=== PATIENT | female | born 1985 | race Caucasian/White ===

== ENCOUNTER 2024-01-27 15:18 | Emergency (ER) | payer MEDICARE, OTHER, SELFPAY ==
[2024-01-27 15:19] VITALS: BP 159/79
[2024-01-27 15:49] LABS: % Basophils 0.6 % (0-2); % Immature Granulocytes 0.4 % (0-0.5); % Lymphocytes 20.7 % (20.5-51.1); % Monocytes 7.8 % (1.7-9.3); % Neutrophils 69.5 % (42.2-75.2); Absolute Basophils 0.1 10^3/uL (0-0.2); Absolute Eosinophils 0.1 10^3/uL (0-0.7); Absolute Lymphocytes 2.2 10^3/uL (1.2-3.4); Absolute Monocytes 0.8 10^3/uL (0.1-0.6); Absolute Neutrophils 7.4 10^3/uL (1.4-6.5); Hematocrit 40.2 % (37.0-47.0); Hemoglobin 13.8 g/dL (12.0-16.0); Mean Corp Hgb Conc. 34.3 g/dL (33.0-37.0); Mean Corpuscular Hgb 30.1 pg (27.0-31.0); Mean Corpuscular Volume 87.6 fL (81.0-99.0); Mean Platelet Volume 14.1 fL (7.4-10.4); Nucleated Red Blood Cells % 0 %; Platelet Count 155 10^3/uL (130-400); Red Blood Cell Count 4.59 10^6/uL (4.20-5.40); Red Cell Dist. Width 13.2 % (11.5-14.5); White Blood Cell Count 10.6 10^3/uL (4.8-10.8)
[2024-01-27 15:59] LABS: ALT (SGPT) 12 U/L (0-35); AST (SGOT) 24 U/L (14-36); Albumin 4.6 g/dl (3.5-5.0); Alkaline Phosphatase 80 U/L (38-126); Blood Urea Nitrogen 13 mg/dl (7-17); Calcium 9.8 mg/dl (8.4-10.2); Carbon Dioxide 22 mmol/L (22-30); Chloride 107 mmol/L (98-107); Glucose 98 mg/dl (70-99); Lipase 261 U/L (23-300); Potassium 3.9 mmol/L (3.5-5.1); Sodium 140 mmol/L (135-145); Total Bilirubin 0.9 mg/dl (0.2-1.3); Total Protein 7.7 g/dl (6.3-8.2); eGFR > 60.00
[2024-01-27] MEDS: OMNIPAQUE 50 ML PO (18:05)
[2024-01-27 18:11] VITALS: BMI 27.7
[2024-01-27 18:17] VITALS: BP 115/74
--- NOTE | 2024-01-27 18:52 | ED.GENMED ---
History of Present Illness
<Fernie Echavarria MD - Last Filed: 01/27/24 20:15>
General
Chief Complaint: Abdominal Pain
Source: patient
Exam Limitations: none
Time Seen by Provider: 01/27/24 16:56
Nursing documentation reviewed up to this point in time: agreed with
History of Present Illness
History of Present Illness:
Patient presents to ED secondary to intermittent right flank pain over the past 3 days. Denies fever or chills. Denies trauma. Denies difficulty with urination. Denies recent illness. Denies recent change in medications or diet. Of note,
patient has had loose bowels over the past 2 days. Patient is primarily concerned with the fact that she has had multiple hernia repair in the past. Denies swelling. Denies recent change in bowel habits.
Past History
<Fernie Echavarria MD - Last Filed: 01/27/24 20:15>
Past History
ED Past Medical History: Other
ED Past Surgical History: Orthopedic
Social History
Tobacco: Non-smoker
Alcohol: None
Drug: Marijuana
Personal: Single
Living: with family
Employment: Employed
Family History
Family History: Other
Review of Systems
<Fernie Echavarria MD - Last Filed: 01/27/24 20:15>
Review of Systems
Allergies reviewed?: Yes
All Other Systems: ROS reviewed and negative except as documented in HPI and ROS
Constitutional: Reports no symptoms
Respiratory: Reports no symptoms; Denies cough
Cardiac: Reports no symptoms; Denies chest pain
ABD/GI: Reports abdominal pain and diarrhea; Denies nausea or vomiting
: Reports no symptoms
Musculoskeletal: Reports no symptoms
Skin: Reports no symptoms
Neurological: Reports no symptoms
Phy Exam
<Fernie Echavarria MD - Last Filed: 01/27/24 20:15>
Physical Exam
Physical Exam:
Physical Exam
General: no apparent distress, not acutely ill. afebrile
Head: nc/at. eomi
Neck: supple
Abdomen: normal bowel sounds. no distention. mild lower abdominal tenderness to palpation, R>L
Neuro: alert and oriented. no focal neurological deficits
Skin: no rash
Psychiatric: well kept. interactive and cooperative
Extremities: no edema. no calf tenderness
Course
<Fernie Echavarria MD - Last Filed: 01/27/24 20:15>
Orders/Labs/Results
Orders:
Orders
01/27/24 15:30
Complete Blood Count/With Diff Urgent
Comprehensive Metabolic Panel Urgent
HCG, Serum Qualitative Screen Urgent
Comment: ADD ON
Lipase Urgent
01/27/24 17:06
CT Abd/pel (oral only)-[facility] Only Urgent
Comment: one functioning kidney
Reason For Exam: lower abd pain w hx mult surgeries
Iohexol [Omnipaque] See Protocol PO NOW STA
01/27/24 18:16
Add On- LAB Urgent
Tests Added?: HCG qual, serum
01/27/24 18:26
Acetaminophen [Tylenol] 650 mg PO NOW STA
Mag Hydrox/Al Hydrox/Simeth [Maalox] 30 ml Phenobarb/Hyoscy/Atropine/Scop [] 10 ml PO NOW
01/27/24 18:43
Mag Hydrox/Al Hydrox/Simeth [Maalox] 30 ml .ROUTE .STK-MED ONE
Phenobarb/Hyoscy/Atropine/Scop [] 10 ml .ROUTE .STK-MED ONE
01/27/24 20:44
Ondansetron Injectable [Zofran] 4 mg IV NOW STA
01/27/24 20:53
Ondansetron Orally Disint [Zofran Odt (Orally Disintegrating)] 4 mg .ROUTE .STK-MED ONE
Ondansetron Orally Disint [Zofran Odt (Orally Disintegrating)] 4 mg PO NOW STA
Abnormal Lab Results
01/27/24
15:30
MPV 14.1 H fL
(7.4-10.4)
Absolute Neuts (auto) 7.4 H 10^3/uL
(1.4-6.5)
Absolute Monos (auto) 0.8 H 10^3/uL
(0.1-0.6)
01/27/24 15:30
01/27/24 15:30
Vital Signs
Initial and Last Documented VS:
Initial Vital Signs
Temp Pulse Resp BP Pulse Ox
98.2 F 72 18 159/79 100
01/27/24 15:19 01/27/24 15:19 01/27/24 15:19 01/27/24 15:19 01/27/24 15:19
Last Documented Vital Signs
Temp Pulse Resp BP Pulse Ox
98.2 F 75 18 115/74 98
01/27/24 15:19 01/27/24 18:17 01/27/24 18:17 01/27/24 18:17 01/27/24 18:17
<Navi Cohen, DO - Last Filed: 01/27/24 21:47>
Orders/Labs/Results
Orders:
Orders
01/27/24 15:30
Complete Blood Count/With Diff Urgent
Comprehensive Metabolic Panel Urgent
HCG, Serum Qualitative Screen Urgent
Comment: ADD ON
Lipase Urgent
01/27/24 17:06
CT Abd/pel (oral only)-[facility] Only Urgent
Comment: one functioning kidney
Reason For Exam: lower abd pain w hx mult surgeries
Iohexol [Omnipaque] See Protocol PO NOW STA
01/27/24 18:16
Add On- LAB Urgent
Tests Added?: HCG qual, serum
01/27/24 18:26
Acetaminophen [Tylenol] 650 mg PO NOW STA
Mag Hydrox/Al Hydrox/Simeth [Maalox] 30 ml Phenobarb/Hyoscy/Atropine/Scop [] 10 ml PO NOW
01/27/24 18:43
Mag Hydrox/Al Hydrox/Simeth [Maalox] 30 ml .ROUTE .STK-MED ONE
Phenobarb/Hyoscy/Atropine/Scop [] 10 ml .ROUTE .STK-MED ONE
01/27/24 20:44
Ondansetron Injectable [Zofran] 4 mg IV NOW STA
01/27/24 20:53
Ondansetron Orally Disint [Zofran Odt (Orally Disintegrating)] 4 mg .ROUTE .STK-MED ONE
Ondansetron Orally Disint [Zofran Odt (Orally Disintegrating)] 4 mg PO NOW STA
Abnormal Lab Results
01/27/24
15:30
MPV 14.1 H fL
(7.4-10.4)
Absolute Neuts (auto) 7.4 H 10^3/uL
(1.4-6.5)
Absolute Monos (auto) 0.8 H 10^3/uL
(0.1-0.6)
01/27/24 15:30
01/27/24 15:30
Vital Signs
Initial and Last Documented VS:
Initial Vital Signs
Temp Pulse Resp BP Pulse Ox
98.2 F 72 18 159/79 100
01/27/24 15:19 01/27/24 15:19 01/27/24 15:19 01/27/24 15:19 01/27/24 15:19
Last Documented Vital Signs
Temp Pulse Resp BP Pulse Ox
98.2 F 75 18 115/74 98
01/27/24 15:19 01/27/24 18:17 01/27/24 18:17 01/27/24 18:17 01/27/24 18:17
<Fernie Echavarria MD - Last Filed: 01/27/24 20:15>
MDM/Problems Addressed
MDM/Problems Addressed:
Patient remains afebrile, hemodynamically stable, nontoxic-appearing. However, secondary to persistent lower abdominal pain, decision made to obtain CT abdomen pelvis with oral contrast only, as patient only has 1 functioning kidney, with
consideration for potential partial bowel obstruction vs appendicitis.
<Navi Cohen DO - Last Filed: 01/27/24 21:47>
*Radiology
Radiology exam reviewed: radiology read reviewed (CT abdomen pelvis no acute finding)
*Pulse Oximetry
Patient hypoxic: no
*EKG
Interpreted by ED Provider?: NA
*Soup Mixer Interpretation
Rate: Soup Mixer- N/A
*Critical Care Note
Total Time (30-74mins, 75-104mins- exclusive of procedures): Not Applicable
<Navi Cohen DO - Last Filed: 01/27/24 21:47>
Update Note
Update Note:
38-year-old female with right flank pain, mildly improved. Suspect likely strain. No acute findings on CT abdomen pelvis. Stable for discharge.
ED Attending Note
<Fernie Echavarria MD - Last Filed: 01/27/24 20:15>
-
Portions of this chart may have been created with voice recognition software.� Occasional wrong word or��sound alike� substitutions may have occurred due to the inherent limitations of voice recognition software.
Discharge Plan
Departure
Patient Disposition: Home (Routine Discharge)
Date of Disposition: 01/27/24
Time of Disposition: 21:44
Patient with high blood pressure during this ER visit?: No
Condition: Good
Discharge Problem:
Acute right flank pain
Instructions: Flank Pain ED
Prescriptions:
No Action
hydrocodone-acetaminophen 1 TABLET tablet
1 tab PO Q4HPRN PRN (Reason: pain) Qty: 12 0RF
tramadol 50 MG tablet
50 mg PO Q6HPRN PRN (Reason: pain) Qty: 12 0RF
meloxicam 15 MG tablet
15 mg PO Daily Qty: 15 0RF
sulfamethoxazole-trimethoprim 1 TABLET tablet
1 tab PO BID Qty: 20 0RF
phenazopyridine 100 MG tablet
100 mg PO TIDPRN PRN (Reason: urinary burining) Qty: 10 0RF
Referrals:
Tevin Barker DO [Family Provider] - Call in 1-3 days for appt
Interventions
Interventions:
*Risk Screen - Suicide Last Done: 01/27/24 15:19
*General Assessment Last Done: 01/27/24 15:19
*Neglect/Abuse Screening Last Done: 01/27/24 15:19
*ED COVID-19 Vaccine History Last Done: 01/27/24 15:19
EC-Skhbxp-Rhuacnvpgx Assessment Last Done: 01/27/24 18:12
Discharge Date and Time
Print Language: TAJIK
[2024-01-27 19:01] LABS: HCG, Serum Qualitative Screen Negative
[2024-01-27] MEDS: MAALOX 40 PO (19:06)
[2024-01-27] MEDS: TYLENOL 650 MG PO (19:06)
[2024-01-27] MEDS: ZOFRAN ODT (ORALLY DISINTEGRATING) 4 MG PO (20:54)
[2024-01-27 22:44] VITALS: BP 112/72
== END 2024-01-27 22:26 | disposition home or self-care (01) ==
LOC: EMR 15:18
PROVIDERS: Emergency Medicine; EMERGENCY PHYSICIAN Emergency Medicine; FAMILY PHYSICIAN Family Medicine
DX: R10.9 Unspecified abdominal pain (principal)
CPT/HCPCS: 99284; 74176; 80053; 83690; 84703; 85025

== ENCOUNTER → 2024-10-02 13:29 | Outpatient (REF) | payer MEDICARE, OTHER, SELFPAY | LOC: PNTC 13:29 | PROVIDERS: ATTENDING PHYSICIAN Student in an Organized Health Care Education/Training Program | DX: Z36.0 Encounter for antenatal screening for chromosomal anomalies (principal); Z36.82 Encounter for antenatal screening for nuchal translucency | CPT/HCPCS: 76801; 76813 ==

== ENCOUNTER → 2024-10-17 16:47 | Outpatient (REF) | payer MEDICARE, OTHER, SELFPAY | LOC: PNTC 16:47 | PROVIDERS: ATTENDING PHYSICIAN Student in an Organized Health Care Education/Training Program | DX: Z96.0 Presence of urogenital implants (principal) | CPT/HCPCS: 76805 ==

== ENCOUNTER → 2024-11-20 15:59 | Outpatient (REF) | payer MEDICARE, OTHER, SELFPAY | LOC: PNTC 15:59 | PROVIDERS: ATTENDING PHYSICIAN Student in an Organized Health Care Education/Training Program | DX: O26.839 Pregnancy related renal disease, unspecified trimester (principal) | CPT/HCPCS: 76811 ==

== ENCOUNTER → 2025-01-15 14:01 | Outpatient (REF) | payer MEDICARE, OTHER, SELFPAY | LOC: PNTC 14:01 | PROVIDERS: ATTENDING PHYSICIAN Obstetrics & Gynecology | DX: O99.320 Drug use complicating pregnancy, unspecified trimester (principal); O09.529 Supervision of elderly multigravida, unspecified trimester; O34.219 Maternal care for unspecified type scar from previous cesarean delivery | CPT/HCPCS: 76816 ==

== ENCOUNTER 2025-02-25 00:35 | Emergency (ER) | payer MEDICARE, OTHER, SELFPAY ==
[2025-02-25 00:39] VITALS: BP 127/86
[2025-02-25 01:02] LABS: Urine Character Slightly Cloudy (Clear)
[2025-02-25 01:10] LABS: Urine White Cell >100 /HPF (0-5)
[2025-02-25 01:42] VITALS: BP 113/64
[2025-02-25 01:43] VITALS: BMI 31.7
--- NOTE | 2025-02-25 02:37 | ED.GENMED ---
History of Present Illness
General
Chief Complaint: Urinary Symptoms
Source: patient
Exam Limitations: none
Time Seen by Provider: 02/25/25 01:48
Nursing documentation reviewed up to this point in time: agreed with
History of Present Illness
History of Present Illness:
Patient G3, P2, currently approximately 8 months , presents to ED secondary to sudden onset of urinary frequency along with burning sensation, starting this evening. Patient has had number of similar symptoms in the past, secondary to UTI.
Denies fever or chills. Denies back pain. Denied nausea vomiting. Denies trauma. Denies inability to urinate.
Past History
Past History
ED Past Medical History: Other
ED Past Surgical History: Orthopedic
Social History
Tobacco: Non-smoker
Alcohol: None
Drug: Marijuana
Personal: Single
Living: with family
Employment: Employed
Family History
Family History: Other
Review of Systems
Review of Systems
Allergies reviewed?: Yes
All Other Systems: ROS reviewed and negative except as documented in HPI and ROS
Constitutional: Reports no symptoms
: Reports dysuria, frequency and urgency
Musculoskeletal: Reports no symptoms
Skin: Reports no symptoms
Neurological: Reports no symptoms
Phy Exam
Physical Exam
Physical Exam:
Physical Exam
General: mild distress, not acutely ill. afebrile
Head: nc/at. eomi
Neck: supple. normal range of motion.
Abdomen: normal bowel sounds. not tender.
Neuro: alert and oriented x 3. no focal neurological deficits
Skin: no rash
Psychiatric: well kept. interactive and cooperative
Extremities: no edema. no calf tenderness.
Course
Orders/Labs/Results
Orders:
Orders
02/25/25 00:56
Urine Culture Reflexed from UA [Urinalysis Reflex To Culture] Urgent
Date Specimen was Collected: 02/25/25
Time Specimen was Collected: 00:51
Urine Microscopic Reflex Cult Urgent
Urine Culture Urgent
LEN Source: U
Specimen Description:
Date Specimen was Collected: 02/25/25
Time Specimen was Collected: 00:51
02/25/25 02:31
Cephalexin Monohydrate [Keflex] 500 mg PO NOW STA
Abnormal Lab Results
02/25/25
00:56
Ur Occult Blood Reflex 4+ A
(Negative)
Urine Nitrite (Reflex) Positive A
(Negative)
Leukocyte Esterase Rfl 3+ A
(Negative)
Urine RBC 7-10 A /HPF
(0-2)
Urine WBC (Reflex) >100 A /HPF
(0-5)
Urine Bacteria (Reflex) Moderate A
(Negative)
Urine Albumin (Reflex) 2+ A
(Neg - Trace)
Vital Signs
Initial and Last Documented VS:
Initial Vital Signs
Temp Pulse Resp BP Pulse Ox
98 F 70 20 127/86 100
02/25/25 00:39 02/25/25 00:39 02/25/25 00:39 02/25/25 00:39 02/25/25 00:39
Last Documented Vital Signs
Temp Pulse Resp BP Pulse Ox
98 F 70 20 113/64 100
02/25/25 00:39 02/25/25 00:39 02/25/25 00:39 02/25/25 01:42 02/25/25 02:39
MDM/Problems Addressed
MDM/Problems Addressed:
History, exam, and urinalysis consistent with urinary tract infection. Patient otherwise is afebrile, hemodynamically stable, and nontoxic-appearing. Patient will be started on Keflex and referred to her MACHINE TECH physician at [facility] for
reevaluation. Patient will be prescribed Pyridium, but prior to taking it, will advise patient to discuss with on-call OB physician regarding usage of Pyridium.
*Pulse Oximetry
SaO2: 100
Oxygen Mode of Delivery: Room air
Patient hypoxic: no
*Critical Care Note
Total Time (30-74mins, 75-104mins- exclusive of procedures): Not Applicable
ED Attending Note
-
Portions of this chart may have been created with voice recognition software.� Occasional wrong word or��sound alike� substitutions may have occurred due to the inherent limitations of voice recognition software.
Discharge Plan
Departure
Patient Disposition: Home (Routine Discharge)
Date of Disposition: 02/25/25
Time of Disposition: 02:40
Patient with high blood pressure during this ER visit?: Yes
Condition: Good
Discharge Problem:
UTI (urinary tract infection)
Instructions: Urinary Tract Infection, Adult (DC)
Prescriptions:
New
cephalexin 500 mg capsule
500 mg PO Q8H Qty: 20 0RF
phenazopyridine [Pyridium] 100 mg tablet
100 mg PO TID PRN (Reason: Pain) Qty: 14 0RF
No Action
hydrocodone-acetaminophen 1 TABLET tablet
1 tab PO Q4HPRN PRN (Reason: pain) Qty: 12 0RF
tramadol 50 MG tablet
50 mg PO Q6HPRN PRN (Reason: pain) Qty: 12 0RF
meloxicam 15 MG tablet
15 mg PO Daily Qty: 15 0RF
sulfamethoxazole-trimethoprim 1 TABLET tablet
1 tab PO BID Qty: 20 0RF
phenazopyridine 100 MG tablet
100 mg PO TIDPRN PRN (Reason: urinary burining) Qty: 10 0RF
Referrals:
Tevin Barker DO [Family Provider]
Activity Restrictions/Additional Instructions:
As discussed, please follow-up with your MACHINE TECH physician for reevaluation, including potential usage of Pyridium for symptomatic control in light of your . Your prescriptions have been sent electronically to [facility] pharmacy in [place].
Interventions
Interventions:
*Risk Screen - Suicide Last Done: 02/25/25 00:39
*General Assessment Last Done: 02/25/25 00:39
*Neglect/Abuse Screening Last Done: 02/25/25 00:39
*ED- Fall Risk Assessment Last Done: 02/25/25 00:39
*ED COVID-19 Vaccine History Last Done: 02/25/25 00:39
*Nursing Disposition Last Done: 02/25/25 02:53
ED-Female Genitourinary Assessment Last Done: 02/25/25 01:43
Discharge Date and Time
Discharge Date/Time: 02/25/25 02:54
Print Language: CITIZEN OF [place]
[2025-02-25] MEDS: KEFLEX 500 MG PO (02:50)
== END 2025-02-25 02:54 | disposition home or self-care (01) ==
LOC: EMR 00:35
PROVIDERS: EMERGENCY PHYSICIAN Emergency Medicine; FAMILY PHYSICIAN Family Medicine
DX: O23.43 Unspecified infection of urinary tract in pregnancy, third trimester (principal); N39.0 Urinary tract infection, site not specified; R03.0 Elevated blood-pressure reading, without diagnosis of hypertension; F41.9 Anxiety disorder, unspecified; F43.10 Post-traumatic stress disorder, unspecified; Z87.440 Personal history of urinary (tract) infections; Z87.891 Personal history of nicotine dependence; Z90.5 Acquired absence of kidney; Z88.8 Allergy status to other drugs, medicaments and biological substances; Z88.6 Allergy status to analgesic agent; Z91.041 Radiographic dye allergy status
CPT/HCPCS: 99283; 81003; 81015; 87077; 87086; 87186